=== PATIENT | female | born 1990 | race Caucasian/White ===

== ENCOUNTER 2017-05-05 23:19 | Emergency (ER) | payer OTHER ==
[2017-05-05 23:25] VITALS: BP 146/83
[2017-05-05] MEDS ORDERED: IBUPROFEN 600 MG TABLET PO ONE (23:53)
[2017-05-05] MEDS ORDERED: PREDNISONE 20 MG TABLET PO ONE (23:53)
--- NOTE | 2017-05-05 23:54 | ER Document Report ---
HPI - HPI Patient complains to provider of: sinus congestion Pain Level: 4 Context: Patient is a 27-year-old female presents emergency department with a chief complaint of right sinus congestion and pain. Patient states that she started having fever, sinus drainage and sinus pressure last Thursday when to see her doctor on Thursday was started on azithromycin received a steroid injection. Patient states that she was feeling well up until today that her sinus pain was worse. She states that she has been taking Motrin [id number] which does help she is only been taking 200 mg. She denies any purulent drainage, fevers, redness or significant tenderness. - NEURO Neurology: REPORTS: Headache - R sided sinus pain - REPRODUCTIVE Reproductive: REPORTS: : Past Medical History - Social History Smoking Status: Current Every Day Smoker Chew tobacco use (# tins/day): No Frequency of alcohol use: None Drug Abuse: None Family History: Reviewed & Not Pertinent Patient has suicidal ideation: No Patient has homicidal ideation: No Renal/ Medical History: Denies: Hx Peritoneal Dialysis Past Surgical History: Reports: Hx Appendectomy Vertical Provider Document - CONSTITUTIONAL Agree With Documented VS: Yes Notes: PHYSICAL EXAM GENERAL: Alert, interacts well. HEENT: NCAT, pale conjunctiva, extraocular movements intact, pupils PERRL. external ear normal, no evidence of external auditory canal tenderness, blood/ drainage, cerumen impaction, TM intact without evidence of effusion, bulging, injection, nasal turbinates without evidence of inflammation, edema. No sinus tenderness to palpation.. MMM, Uvula midline. Airway patent. No evidence of tonsillar enlargement, peritonsillar abscess, retropharyngeal abscess. LUNGS: Clear to auscultation bilaterally, no wheezes, rales, or rhonchi. No respiratory distress. HEART: Regular rate and rhythm. No murmurs, gallops, or rubs. NEUROLOGICAL: Alert and oriented x4. Normal speech. PSYCH: Normal affect, normal mood. SKIN: Warm, dry, normal turgor. No rashes or lesions noted. - INFECTION CONTROL TRAVEL OUTSIDE OF THE [place] IN LAST 30 DAYS: No - RESPIRATORY O2 Sat by Pulse Oximetry: 98 Course - Re-evaluation Re-evalutation: 05/05/17 23:50 Patient is a 27-year-old female hemodynamic stable, no acute distress and afebrile. Presentation is consistent with sinus congestion with associated inflammation. Discussed with her that we can start her on a steroid to help with the inflammation and that she should start taking more than 200 mg of Motrin to help with her pain. Otherwise discussed strict return precautions and patient is stable for discharge home. - Vital Signs Vital signs: Temp Pulse Resp BP Pulse Ox 98.8 F 113 H 16 146/83 H 98 05/05/17 23:23 05/05/17 23:23 05/05/17 23:23 05/05/17 23:23 05/05/17 23:23 Discharge - Discharge Clinical Impression: Sinus pain Condition: Good Disposition: HOME, SELF-CARE Instructions: Sinusitis ([facility]) Additional Instructions: Please start taking an [id number] pseudoephedrine which will function as a decongestant. Otherwise you can start taking anywhere from 200-800 mg of Motrin to help with inflammation. Will also discharge you home with a oral steroid. Please take as directed. Prescriptions: Prednisone 5 mg PO ASDIR 6 Days [email or web address]
== END 2017-05-06 00:04 | disposition home or self-care (01) ==
LOC: ER 23:19
DX: O99.519 Diseases of the respiratory system complicating pregnancy, unspecified trimester (principal); J34.89 Other specified disorders of nose and nasal sinuses; O26.899 Other specified pregnancy related conditions, unspecified trimester; R09.81 Nasal congestion; O99.330 Smoking (tobacco) complicating pregnancy, unspecified trimester; Z3A.00 Weeks of gestation of pregnancy not specified
CPT/HCPCS: 99283